=== PATIENT | female | born 1935 | race Caucasian/White ===

== ENCOUNTER 2020-08-25 09:05 | Day surgery (SDC) | payer MEDICARE, BC ==
[~2020-08-25] VITALS: Ht 162.6 cm; Wt 60.0 kg
[~2020-08-25 09:05] MED LIST: ASPIR-LOW81 MG PO; CALCIUM600 MG PO; CENTRUM SILVER1 EAC3 PO; DILTIAZEM HCL120 MG PO; FOSAMAX70 MG PO; OMEGA 3 1,0001 EACH PO; SIMVASTATIN20 MG PO; VITAMIN C1000 MG PO; VITAMIN D32000 UNI1 PO
--- NOTE | 2020-08-25 12:56 | NUR ---
08/25/20 1256 Irina Lpoez 1232 PT ARRIVED IN PACU SLEEPY LAYING SEMI ENGEL. SHARMA CATHETER CLAMPED AND TAPED TO ABD FROM OR. 1240 PT REPOSITIONED SELF TO L SIDE PER DR ORDERS. NO C/O'S. 1250 OXYGEN REMOVED. SATS 98-100% ON RA.
--- NOTE | 2020-08-25 13:18 | NUR ---
PT ARRIVES TO DS RM 5 FROM PACU ON RIGHT SIDE. PT DENIES ANY PAIN OR NAUSEA, STATES "HAVING TO PEE." PLAN FOR PT TO REPOSITION PRONE AT 1320. PT SPOUSE IN AT TIME OF ARRIVAL, STEPS OUT. CALL LIGHT WITHIN REACH.
--- NOTE | 2020-08-25 14:08 | NUR ---
LE 1340: CATHETER DRAINED FOR 75ML MITOMYCIN DRAINED AND DISPOSED OF APPROPRIATE. CATH REMOVED AND PT UP TO BR WITH STANDBY ASSIST FROM THIS RN REQUESTED. SUCCESSFUL FIRST POST OP VOID OF 300ML. PT BACK TO STRETCHER. DANAY WELL, DENIES DIZZINESS AND SOB. BP ELEVATED. PT TOLERATES PO INTAKE. AT THE BEDSIDE AND ATTENTIVE. NO NEEDS VOICED AT THIS TIME
--- NOTE | 2020-08-25 15:31 | NUR ---
UP TO BATHROOM STEADY ON FEET, VOIDED 300 ML. REPORTS FEELING PRESSURE IN BLADDER. BACK TO ROOM, ADMINISTERED HYDRALIZINE IV PER MAR, PATIENT TOLERATED IV MEDICAITON WELL, VSS IMPROVED. PROVIDED APPLE JUICE AND WARMING MEASURES. NO OTHER NEEDS AT THIS TIME.
[2020-08-25] MEDS ORDERED: CIPRO500 MG PO (15:56)
[2020-08-25] MEDS ORDERED: OXYCODONE HCL5 MG PO (15:57)
[2020-08-25] MEDS ORDERED: PYRIDIUM200 MG PO (15:57)
--- NOTE | 2020-08-25 16:03 | NUR ---
PATIENT CALLED STATING" I THINK I AM GONNA THROW UP MY STOMACH HURTS SO BAD". DISCUSSED PAIN MEDICAITON PER MAR. PATIENT REFUSED WITH CONCERNS OF CONSTIPATION, PATIENT'S REASSURED PATIENT THAT PAIN MEDICAITON IS NEEDED NOW, AND WILL USE LAXATIVES AT HOME. PATIENT THEN AGREED TO PAIN MEDICAITON.
--- NOTE | 2020-08-25 16:09 | NUR ---
PT AMBULATES TO BR INDEPENDENTLY. DANAY WELL. CALL LIGHT WITHIN REACH
--- NOTE | 2020-08-25 16:44 | NUR ---
LE 1425: PT REQUESTING D/C. MEETS CRITERIA AND STATES INCREASED COMFORT AFTER PAIN RX ADMIN. D/C INSTRUCTIONS PROVIDED AND DISCUSSED ORDERED. PT VERBALIZES UNDERSTANDING. WHEELED OFF OF UNIT BY THIS RN. TRANSFERS INTO VEHICLE INDEPENDENTLY. RESP EVEN AND UNLABORED. NO PHYSICAL S/S OF DISTRESS AT THIS TIME
--- NOTE | 2020-08-29 13:29 | PATH ---
[facility] [address] [place], [place] [address] Signed SPECIMEN(S): A URINARY BLADDER CHIPS SPECIMEN SOURCE: A. URINARY BLADDER CHIPS CLINICAL HISTORY: Papillary bladder mass. 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 COMMENT: The lesion demonstrates both exophytic and endophytic (inverted) architecture. This case has been reviewed by Adrienne Conroy M.D. NAL:YULIYA:cml:C1NR MICROSCOPIC EXAMINATION: Histologic sections of all submitted blocks are examined by light microscopy. These findings, together with the gross examination, support the pathologic diagnosis. GROSS DESCRIPTION: The specimen, labeled "DC, urinary bladder chips," is received in formalin and consists of pink-worley, rubbery and soft tissue fragments that aggregate measure 2.0 x 1 3 x 0.3 cm. Specimen is entirely submitted in cassette (A1). JS (under the direct supervision of a pathologist) The Gross Description was prepared using a voice recognition system. The report was reviewed for accuracy; however, sound-alike word errors, addition and/or deletions may occur. If there is any question about this report, please contact Client Services. PERFORMING LABORATORY: The technical component was performed by [facility], [address] [place] [id number] ([employer]: Yuliya Cruz MD; CLIA# [id number]). [facility], [address] [address] (CLIA# [id number]). Diagnostician: Brynn Campbell MD PATIENT NAME: AIDE CHARLES SHONNA PATHOLOGY DATE OF : 35 REPORT #: [id number] PHYSICIAN: DARIUSZ PATHOLOGY PCP: CARTER PEDRAZA DO REPORT IS CONFIDENTIAL AND NOT TO BE RELEASED WITHOUT AUTHORIZATION [address] [address] Signed Pathologist Electronically Signed 08/29/2020 Copies: ~ PATIENT NAME: AIDE CHARLES SHONNA PATHOLOGY DATE OF : 35 REPORT #: [id number] PHYSICIAN: [facility] PATH[facility] PCP: CARTER PEDRAZA DO REPORT IS CONFIDENTIAL AND NOT TO BE RELEASED WITHOUT AUTHORIZATION
--- NOTE | 2020-09-01 10:48 | OR ---
[facility] [address] [place], [place] [address] Signed DATE OF OPERATION: 08/25/2020 SURGEON: Donte Acosta MD PREOPERATIVE DIAGNOSIS: 1.5 cm pedunculated bladder mass, located on top of left ureteral orifice. POSTOPERATIVE DIAGNOSIS: 1.5 cm pedunculated bladder mass, located on top of left ureteral orifice. NAMES OF PROCEDURES: 1. Diagnostic cystoscopy with left retrograde pyelogram. 2. Transurethral resection of bladder tumor -- small. 3. Insertion of 6 x 24 cm double-J ureteral stent into the left collecting system. 4. Intravesical instillation of mitomycin chemotherapy. ANESTHESIA: General. ESTIMATED BLOOD LOSS: Minimal. COMPLICATIONS: None. SPECIMENS: Fragments of papillary bladder tumor sent to pathology for evaluation. DRAINS: A 20-[place]er 2-way Jaimes catheter, capped and secured to the patient's abdomen. INDICATIONS FOR PROCEDURE: Ms. Charles is a very pleasant 85-year-old healthy female, who recently presented to me upon referral from Dr. James Pedraza for evaluation of a bladder filling defect incidentally noted on a CT scan performed earlier this year. The patient denied any gross hematuria or any other urinary symptoms. She does have a remote history of mild tobacco use. She recently underwent diagnostic cystoscopy, which revealed presence of a 1 to 1.5 cm pedunculated and papillary bladder mass located directly on top of the left ureteral orifice. No other masses were noted at that time. She presents today to undergo definitive management of her bladder mass. Electronically Signed By: DONTE ACOSTA MD 09/01/20 1048 PATIENT NAME: AIDE CHARLES OPERATIVE REPORT DATE OF : 35 REPORT #: [id number] PHYSICIAN: DONTE ACOSTA MD PCP: JAMES PEDRAZA DO REPORT IS CONFIDENTIAL AND NOT TO BE RELEASED WITHOUT AUTHORIZATION [facility] [address] [place], [place] [address] Signed OPERATIVE FINDINGS: 1. On cystoscopy, there is a 1.5 cm papillary mass noted directly on top of the left ureteral orifice as described above. This mass appears mostly pedunculated. However, there appears to be some minor changes to the bladder wall just superior to the rim of the left ureteral orifice. This mass is resected endoscopically in toto including the entire 2 cm distal portion of the left ureter. The fragments of the resection were sent to pathology for evaluation. 2. There was good efflux noted from the left ureteral orifice after resection. An initial left retrograde pyelogram was performed prior to resection, which revealed no evidence of any filling defects within the entire length of the left ureter. Left retrograde pyelogram also revealed some mild dilation of the left renal pelvis. However, there was no overt calyceal blunting or filling defect within the left renal pelvis. 3. A repeat left retrograde pyelogram was performed, which again revealed a left ureter without any filling defects. Left semi-rigid ureteroscopy was performed in order to guide the Sensor wire into the left collecting system prior to stent placement. 4. A 6 x 24 cm double-J ureteral stent was inserted into the patient's left collecting system under fluoroscopic guidance without difficulty. 5. At the end the procedure, 40 mg of mitomycin in 20 mL of sterile water was infused into the patient's bladder via a 20-[place] Jaimes catheter. The catheter was then secured to the patient's abdomen. DESCRIPTION OF PROCEDURE: After informed consent was obtained, the patient was taken back to the operating room. She was transferred from the rmadison to the operating room table, where general anesthesia was induced. She was placed in the dorsal lithotomy position and her genitalia were prepped and draped in a standard sterile fashion. Using a 30-degree lens on a 22.5-[place]er introducer, rigid cystoscope was inserted through the urethra and into her bladder under direct visualization. Panendoscopic views of the bladder were then obtained. Please see above findings. Attention was turned to the left ureteral orifice. A cone-tipped catheter was used to perform a left retrograde pyelogram. Please see above findings. I then removed the cystoscope and replaced it with a 26-[place]er sheath using a visual obturator. The visual obturator was then switched out for a resectoscope with a 24-[place]er loop. The 1.5 cm bladder mass located on top of the left ureteral orifice was then resected under direct vision. The mass process was resected as well as 2 to 3 cm of the distal left ureter and ureteral orifice. The resection was performed down to the level of the detrusor muscle. No iatrogenic perforation occurred during resection. I could easily see the distal portion of the ureter even after resection as it was noted to be effluxing normally. I cauterized the entire resection bed, excluding the left ureteral orifice itself. Cautery was also performed with a 24-[place] bipolar loop. Once I was satisfied that all of the tumor Electronically Signed By: DONTE ACOSTA MD 09/01/20 1048 PATIENT NAME: AIDE CHARLES SHONNA OPERATIVE REPORT DATE OF : 35 REPORT #: [id number] PHYSICIAN: DONTE ACOSTA MD PCP: JAMES PEDRAZA DO REPORT IS CONFIDENTIAL AND NOT TO BE RELEASED WITHOUT AUTHORIZATION [address] [place], [place] [address] Signed fragments had been collected via bladder irrigation using a Michael syringe, I removed the resectoscope and reinserted a diagnostic cystoscope using a 22.5-[place]er introducer. A repeat left retrograde pyelogram was then performed using a cone-tipped catheter. Please see above findings. I removed the cystoscope and then inserted a short semi-rigid ureteroscope. This was easily passed into the left distal ureter and a repeat left retrograde pyelogram was performed. I removed the cone-tipped catheter and then passed a Sensor wire through the ureteroscope and into the left collecting system. Adequate placement of the wire was confirmed on fluoroscopy. The semi-rigid ureteroscope was then removed, leaving the wire behind. Over the wire, I passed a 6 x 24 cm double-J ureteral stent into the patient's left collecting system. When the Sensor wire was pulled, an adequate proximal coil was seen within the left renal pelvis. An adequate distal coil was seen on cystoscopy. The patient's bladder was then drained completely. A 20-[place] 2-way Jaimes catheter was inserted into the patient's bladder without difficulty. This catheter was manually irrigated with sterile water. I then instilled the 40 mg of mitomycin in 20 mL of sterile water into the patient's bladder via the Jaimes catheter. Once the mitomycin was instilled, the catheter was capped and then secured to the patient's abdomen. A belladonna and opioid suppository were then inserted per rectum. The procedure was then terminated. The patient tolerated the procedure well without any complication. She will now be transferred to the Postanesthesia Care Unit in stable condition. DISPOSITION: I discussed the details of today's procedure with the patient's and answered all of his questions. She will be sent home today with Cipro 500 mg p.o. b.i.d. for a total of 7 days, along with oxycodone 5 mg 1 tablet p.o. q.8 hours p.r.n. pain. She was also given Pyridium as needed for dysuria. Her indwelling ureteral stent will remain in the collecting system to allow proper healing of the left ureteral orifice. She has been scheduled to return to clinic on September 11 to undergo cystoscopy with left ureteral stent extraction. I told Dr. Charles today that I would contact him with the results of her pathology as soon as they were available to me. MD IVANA Bravo/TANOL /[id number] Electronically Signed By: DONTE ACOSTA MD 09/01/20 1048 PATIENT NAME: AIDE CHARLES SHONNA OPERATIVE REPORT DATE OF : 35 REPORT #: [id number] PHYSICIAN: DONTE ACOSTA MD PCP: JAMES PEDRAZA DO REPORT IS CONFIDENTIAL AND NOT TO BE RELEASED WITHOUT AUTHORIZATION [facility] [address] [place] [id number] Signed Copies: ~ Electronically Signed By: DONTE ACOSTA MD 09/01/20 1048 PATIENT NAME: AIDE CHARLES SHONNA OPERATIVE REPORT DATE OF : 35 REPORT #: [id number] PHYSICIAN: DONTE ACOSTA MD PCP: JAMES PEDRAZA DO REPORT IS CONFIDENTIAL AND NOT TO BE RELEASED WITHOUT AUTHORIZATION
== END 2020-08-25 16:30 | disposition home or self-care (01) ==
LOC: DS 09:05
PROVIDERS: ATTEND Urology
PROC: 0TBB8ZX Excision of Bladder, Via Natural or Artificial Opening Endoscopic, Diagnostic (ICD-10-PCS; principal; 2020-08-25 10:30)
PROC: 0T778DZ Dilation of Left Ureter with Intraluminal Device, Via Natural or Artificial Opening Endoscopic (ICD-10-PCS; 2020-08-25 10:30)
PROC: 3E0K705 Introduction of Other Antineoplastic into Genitourinary Tract, Via Natural or Artificial Opening (ICD-10-PCS; 2020-08-25 10:30)
DX: N32.89 Other specified disorders of bladder (principal); I10 Essential (primary) hypertension; E21.3 Hyperparathyroidism, unspecified; E78.5 Hyperlipidemia, unspecified; Z98.890 Other specified postprocedural states
CPT/HCPCS: 00912; 74420; 88307; C2617; J0360; J0690; J1100; J2405; J2704; J3010; J7121; J9280; Q9967

== ENCOUNTER 2021-03-16 09:35 | Day surgery (SDC) | payer MEDICARE, BC ==
[~2021-03-16] VITALS: Ht 162.6 cm; Wt 60.9 kg
[~2021-03-16 09:35] MED LIST changes: +CIPRO500 MG PO; +FISH OIL 1,0001 EAC3 PO; +LIPITOR40 MG PO; +OXYCODONE HCL5 MG PO; +PYRIDIUM200 MG PO
--- NOTE | 2021-03-16 15:08 | NUR ---
03/16/21 1508 Regina Johnson 1503- PT ARRIVES TO PACU NONAROUSABLE TO NOXIOUS STIMULI WITH AN OPA IN PLACE. PT ALSO NEEDING A JAW LIFT TO MAINTAIN A PATENT AIRWAY. RESP EVEN AND UNLABORED. OXYGEN SAT HIGH 90'S TO 100% ON 10L VIA MASK. 1507- OXYGEN TITRATED DOWN TO 6L VIA MASK.
--- NOTE | 2021-03-16 15:45 | NUR ---
PATIENT ARRIVES BACK TO ROOM FROM PACU. RECEIVED REPORT FROM NICA LUNDBERG. PATIENT RESTING COMFORTABLY IN BED. AT BEDSIDE. VSS. PATIENT DENIES PAIN OR NAUSEA. SHE IS NOT HAVING ANY SPOTTING. STATES SHE FEELS SHE HAS TO URINATE WITH SHARMA IN PLACE. PROVIDED PATIENT WITH WATER AND APPLESAUCE. CALL LIGHT WITHIN REACH.
--- NOTE | 2021-03-16 16:27 | NUR ---
PHONE CALL TO DR ACOSTA. PATIENT HAS SENSATION TO USE URINATE WITH SHARMA IN PLACE. ORDER GIVEN FOR ANOTHER B&O OR OXYBUUTYNIN 5 MG TAB NOW. TALKED TO PATIENT AND AND THEY DECLINED INTERVENTION AT THIS TIME STATING NOT THAT BAD.
--- NOTE | 2021-03-16 16:45 | NUR ---
PATIENT RESTING COMFORTABLY IN BED. HUSBAN AT BEDSIDE. DENIES PAIN AND NAUSEA. VSS. DRINKING WATER. NO BLEEDING. SHARMA CATHERTER DRAINING WELL. CALL LIGHT WITHIN REACH.
--- NOTE | 2021-03-16 17:10 | NUR ---
PROVIDED PATIENT WITH DISCHARGE INSTRUCTIONS. PATIENT VERBALIZED UNDERSTANDING AND ALL QUESTIONS ANSWERED. EMPTIED SHARMA CATH. PATIENT DENIES PAIN. NO BLEEDING. PROVIDED PATIENT WITH WHEELCHAIR RIDE TO FRONT OF HOSPITAL WHERE WAS WAITING WITH CAR.
--- NOTE | 2021-03-18 08:55 | OR ---
[facility] [address] [facility] [place], [place] [address] Signed DATE OF OPERATION: 03/16/2021 SURGEON: Donte Acosta MD PREOPERATIVE DIAGNOSES: 1. History of bladder mass, status post resection of left ureteral orifice. 2. A 5 mm distal left ureteral calculus per recent CT scan. POSTOPERATIVE DIAGNOSES: 1. History of bladder mass, status post resection of left ureteral orifice. 2. A 5 mm distal left ureteral calculus per recent CT scan. 3. 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 NAMES OF PROCEDURES: 1. Diagnostic cystoscopy. 2. Attempted left retrograde pyelogram. 3. Attempted recanalization of the left ureteral orifice. 4. Transurethral resection of left ureteral orifice (TURBT-small) .. 5. Placement of 20-Libyan two-way Jaimes catheter. ANESTHESIA: General. ESTIMATED BLOOD LOSS: Minimal. COMPLICATIONS: None. SPECIMENS: Area of previous left ureteral orifice with associated calcifications resected in toto and placed in a specimen cup to be sent to pathology for evaluation. DRAINS: A 20-Libyan two-way Jaimes catheter, connected to gravity drainage. INDICATIONS FOR PROCEDURE: Mrs. Charles is a very pleasant 85-year-old female who earlier this year underwent transurethral resection of a mass growing directly on top of her left ureteral orifice. Pathology at that time revealed PUNLMP. Not long after surgery, the patient did begin Electronically Signed By: DONTE ACOSTA MD 03/18/21 0855 PATIENT NAME: AIDE CHARLES [facility] OPERATIVE REPORT DATE OF : 35 REPORT #: [id number] PHYSICIAN: DONTE ACOSTA MD PCP: CARTER PEDRAZA DO REPORT IS CONFIDENTIAL AND NOT TO BE RELEASED WITHOUT AUTHORIZATION [facility] [address] [place], [place] [address] Signed to experience intermittent bouts of left-sided flank pain. She ultimately underwent a renal bladder ultrasound which did reveal dilation of the left kidney. This was followed by a CT IVP in late January, which revealed moderate left hydronephrosis down to the level of the distal left ureter where there appear to be a 5 mm distal left ureteral calculus. After discussion of the risks and benefits of the procedure, the patient has consented to undergo left ureteroscopy with laser lithotripsy and basket extraction of her obstructing 5 mm distal left ureteral calculus. She presents today to undergo the aforementioned procedure. OPERATIVE FINDINGS: 1. On cystoscopy, there was no evidence of any suspicious masses or lesions, however, there are a small amount of calcifications associated with the left ureteral orifice status post resection. I attempted to perform a left retrograde pyelogram, however, this was unsuccessful, so I attempted to cannulate the left ureteral orifice using a semi-rigid ureteroscope. This was also unsuccessful. Because the patient's previously resected left ureteral orifice appeared mildly aberrant in appearance and I was unable to cannulate the left ureteral orifice, the decision was made to attempt repeat transurethral resection of the left ureteral orifice. The left ureteral orifice was resected transurethrally, however I was unable to visualize the ureteral orifice, even after resection of the inflamed tissue. 2. The patient was given IV fluorescein to assist in evaluating for efflux from the left ureteral orifice. However, this was unsuccessful. I resected a little bit more in the area where I believe the left ureteral orifice would be, however, once more than adequate section was performed, I chose to defer any additional resection for fear of potentially perforating the patient's bladder. 3. A 20-Libyan two-way Jaimes catheter was inserted into the patient's bladder and connected to gravity drainage. DESCRIPTION OF PROCEDURE: After informed consent was obtained, the patient was taken to the operating room. [facility], where general anesthesia was induced. She was placed in the dorsal lithotomy position and her genitalia were prepped and draped in a standard sterile fashion. Using a 30-degree lens on a 22.5-Libyan introducer, a rigid cystoscope was inserted through urethra and into her bladder under direct visualization. Panendoscopic views of the bladder were then obtained. I then turned my attention to the left ureteral orifice. Please see above findings. I 1st attempted left retrograde pyelogram with a cone-tipped catheter, however, this was unsuccessful. I decided to use an alligator grasper to pull some of the calcifications from the opening of the left ureteral orifice to hopefully get a better view of the opening to the ureteral orifice. I then advanced a semi-rigid ureteroscope and attempted to cannulate the left ureteral orifice with a semi-rigid Electronically Signed By: DONTE ACOSTA MD 03/18/21 0855 PATIENT NAME: AIDE CHARLES [facility] OPERATIVE REPORT DATE OF : 35 REPORT #: [id number] PHYSICIAN: DONTE ACOSTA MD PCP: CARTER PEDRAZA DO REPORT IS CONFIDENTIAL AND NOT TO BE RELEASED WITHOUT AUTHORIZATION [address] [address] Signed ureteroscope. This was unsuccessful as I was never able to find the opening to the left ureteral orifice. It was at this time that I made decision to transurethrally resect the distal and of the left ureter in hopes to regain access to the left ureteral orifice. Therefore, a resectoscope with a 24-Libyan bipolar loop was then gently used to resect the distal ureteral orifice. I made a few small resections in the area where I believe the left ureteral orifice was anticipated to be based on the general appearance of the area. I resected and obtained a few moderately deep slices of urothelium in the area. I made it down to the level of the perivesical fat in a couple of small areas, however, I was not concerned for perforation at that time. Once I resected as much as I could comfortably and I was unable to see the ureter, I asked anesthesia to administer IV fluorescein in an effort to visualize the left ureteral orifice. Fluorescein was administered and after 30 minutes, there was no evidence of any efflux from the left ureter. At this time, I was uncomfortable performing any additional resection of this area for fear of potentially perforating the patient's bladder, so this portion of the procedure was then aborted. I was careful not to cauterize anything in this area for fear of sealing the ureteral orifice. There was no significant oozing from this area, so there was no significant cautery required for hemostasis. The patient's bladder was irrigated of the resected area of the left ureteral orifice. This will be sent to pathology for evaluation. Once I was satisfied that the patient's bladder was free of any additional specimens, I removed the cystoscope and inserted a 20-Libyan two-way Jaimes catheter into the patient's bladder. The Jaimes balloon was filled with 30 mL of sterile water. This catheter was then connected to gravity drainage and the procedure was terminated. The patient tolerated the procedure well without any complication. She will now be transferred to the postanesthesia care unit in stable condition. DISPOSITION: I discussed the details of today's procedure with the patient's , Dr. Charles and answered all of his questions. I told him that the patient will likely require an Interventional Radiology referral to be evaluated for percutaneous antegrade placement of a nephrostomy tube, followed by an internal double-J stent. The patient's initially voiced interest to being referred to [facility]. However now he is considering being referred to [facility] since he has family connections there. He has agreed to give me the name of the interventional radiologist at [facility] tomorrow so that can contact that particular interventional radiologist and place a formal referral. The patient will be sent home today with Cipro 500 mg p.o. b.i.d. for a total of 7 days along with B and O suppositories as needed for bladder spasms. The patient will be scheduled to return to clinic in approximately 2 months for postoperative evaluation and in the interim, may call the office as needed. However, I will be out of the clinic for approximately seven weeks. Electronically Signed By: DONTE ACOSTA MD 03/18/21 0855 PATIENT NAME: AIDE CHARELS [facility] OPERATIVE REPORT DATE OF : 35 REPORT #: [id number] PHYSICIAN: DONTE ACOSTA MD PCP: CARTER PEDRAZA DO REPORT IS CONFIDENTIAL AND NOT TO BE RELEASED WITHOUT AUTHORIZATION [address] [address] Signed Donte Acosta MD AR/MODL /[id number] Copies: ~ Electronically Signed By: DONTE ACOSTA MD 03/18/21 0855 PATIENT NAME: AIDE CHARLES SHONNA OPERATIVE REPORT DATE OF : 35 REPORT #: [id number] PHYSICIAN: DONTE ACOSTA MD PCP: CARTER PEDRAZA DO REPORT IS CONFIDENTIAL AND NOT TO BE RELEASED WITHOUT AUTHORIZATION
--- NOTE | 2021-03-20 08:41 | PATH ---
[facility] [address], [place] [address] Signed SPECIMEN(S): A LEFT URETERAL ORIFICE SPECIMEN SOURCE: A. LEFT URETERAL ORIFICE CLINICAL HISTORY: History of bladder tumor resection FINAL PATHOLOGIC DIAGNOSIS: Bladder, left ureteral orifice, biopsy: - Benign urothelial tissue with dystrophic calcification and foreign body giant cell reaction. BRP:michael:[id number] MICROSCOPIC EXAMINATION: Histologic sections of all submitted blocks are examined by light microscopy. These findings, together with the gross examination, support the pathologic diagnosis. GROSS DESCRIPTION: The specimen, labeled "DC, left ureteral orifice," is received in formalin and consists of several pieces of irregular shaped pink-worley, rubbery and friable tissue fragments that aggregate measure 2.3 x 1.4 x 0.3 cm. Specimen is entirely submitted in cassette (A1). JS (under the direct supervision of a pathologist) The Gross Description was prepared using a voice recognition system. The report was reviewed for accuracy; however, sound-alike word errors, addition and/or deletions may occur. If there is any question about this report, please contact Client Services. PERFORMING LABORATORY: The technical component was performed by [facility], [address] [place] [id number] (Filling And Stapling Machine Operator: Yuliya Cruz MD; CLIA# [id number]). The professional interpretation was performed by [facility], [facility], [address] [place] [address]. Diagnostician: Papa Mcbride MD Pathologist Electronically Signed 03/17/2021 PATIENT NAME: AIDE CHARLES SHONNA PATHOLOGY DATE OF : 35 REPORT #: [id number] PHYSICIAN: DARIUSZ PATHOLOGY PCP: CARTER PEDRAZA DO REPORT IS CONFIDENTIAL AND NOT TO BE RELEASED WITHOUT AUTHORIZATION [address] [address] Signed Copies: ~ PATIENT NAME: AIDE CHARLES SHONNA PATHOLOGY DATE OF : 35 REPORT #: [id number] PHYSICIAN: DARIUSZ PATHOLOGY PCP: CARTER PEDRAZA DO REPORT IS CONFIDENTIAL AND NOT TO BE RELEASED WITHOUT AUTHORIZATION
== END 2021-03-16 17:00 | disposition home or self-care (01) ==
LOC: OPS 09:35 → DS 09:35 → OPS 10:55
PROVIDERS: ATTEND Urology
PROC: 0TBB8ZZ Excision of Bladder, Via Natural or Artificial Opening Endoscopic (ICD-10-PCS; principal; 2021-03-16 12:00)
DX: N32.9 Bladder disorder, unspecified (principal); N20.1 Calculus of ureter; E78.5 Hyperlipidemia, unspecified; I10 Essential (primary) hypertension; Z90.710 Acquired absence of both cervix and uterus; Z87.891 Personal history of nicotine dependence
CPT/HCPCS: 00912; 76000; 88305; C1769; J0690; J1100; J2405; J2704; J3010; J7121

== ENCOUNTER 2025-03-12 09:58 | Observation (INO) | payer MEDICARE, BC ==
[2025-03-05 17:30] VITALS: BP 158/61
[~2025-03-12] VITALS: Ht 162.6 cm; Wt 60.5 kg
[2025-03-12] VITALS (7 sets, daily range): BP systolic 148–156; BP diastolic 45–59
[~2025-03-12 09:58] MED LIST changes: +IBLOOD GLUCOSE TEST STRIP 1 EA TEST VI PRN; +LACTATED RINGER'S 1,000 ML IV SCH; +LIDOCAINE HCL 1% 5 ML SDV INJ ONE
[2025-03-12] MEDS ORDERED: LIDOCAINE HCL 2% 5 ML SDV ONE (13:00)
[2025-03-12] MEDS ORDERED: fentaNYL citrate 100 MCG/2 ML VIAL ONE ×2 (13:00→14:01)
[2025-03-12] MEDS ORDERED: ROCURONIUM BROMIDE 50 MG/5 ML SYR ONE (13:05)
[2025-03-12] MEDS ORDERED: CEFAZOLIN SODIUM 2 GM/20 ML SYR IV SCH (13:12)
[2025-03-12] MEDS ORDERED: DEXAMETHASONE SOD PHOS 4 MG/ML VIAL ONE (13:44)
[2025-03-12] MEDS ORDERED: HYDROmorphone HCL 1 MG/ML SYR IV PRN (14:15)
[2025-03-12] MEDS ORDERED: fentaNYL citrate 50 MCG/ML SDV IV PRN (14:15)
[2025-03-12] MEDS ORDERED: IBLOOD GLUCOSE TEST STRIP 1 EA TEST VI PRN (14:15)
[2025-03-12] MEDS ORDERED: METOCLOPRAMIDE HCL 10 MG/2 ML SDV IV PRN (14:15)
[2025-03-12] MEDS ORDERED: NALOXONE HCL 0.4 MG SYR IV PRN (14:15)
[2025-03-12] MEDS ORDERED: SUGAMMADEX SODIUM 200 MG/2 ML ML ONE (14:30)
--- NOTE | 2025-03-12 15:02 | NUR ---
03/12/25 1502 Ashley Catherine PATIENT REPORTS NEEDING TO SPIT ON ARRIVAL TO PACU. SUCTION IS PROVIDED AND PATIENT FOLLOWS INSTRUTIONS TO SPIT INTO THE SUCTION TUBING.
[2025-03-12] MEDS ORDERED: LACTATED RINGER'S 1,000 ML IV SCH (15:15)
[2025-03-12] MEDS ORDERED: PROCHLORPERAZINE EDISYLATE 10 MG/2 ML VIAL IV PRN (15:15)
[2025-03-12] MEDS ORDERED: OXYCODONE HCL 5 MG TAB PO PRN (15:30)
[2025-03-12] MEDS ORDERED: SEVOFLURANE 250 ML BTL INH ONE (15:58)
--- NOTE | 2025-03-12 16:28 | NUR ---
PT ALERT FROM O/R DENIES DISCOMFORTS FAMILY PRESENT X2. PT HAS CONTINUED TO REST QUIETLY WATCHING TV SIPPING H20. PT AGREES TO OXY 5 MG CRUSHED IN APPLESAUCE TO PREVENT PAIN POST OPERATIVELY. ORIENTED TO CALL LIGHT AND BED CONTROLS. BED IS ELEVATES PER INSTRUCTIONS, TRACH KIT IN THE HOLMAN NEAR PT ROOM DOOR. PT DENIES FURTHER NEEDS. VERBALIZES UNDERSTANDING THAT SHE IS TO NOTIFY STAFF OF ANY NUMBNESS, TINGLING, SOB, THROAT SWELLING, OR ANY OTHER CONCERNS. PT SITS ON EDGE OF BED THEN SBA TO BSC TO VOID. RETURNS TO RESTING IN BED.
--- NOTE | 2025-03-12 17:15 | NUR ---
PT RESTING IN BED EYES CLOSED. DEMONSTRATED HOW TO CALL FOR ASSIST AFTER LAST SET OF VITALS BEFORE THIS INSTRUMENTATION SPECIALIST LEFT THE ROOM. DRESSING CDI NO SWELLING AT INCISION SITE. PT HAS BEEN SIPPING ICE WATER SINCE COMING TO THE FLOOR
--- NOTE | 2025-03-12 17:44 | NUR ---
PT CONTINUES TO REST QUIETLY AGREES SHE IS COMFORTABLE. CONTINUES TO SIP H20 AND CLEAR ENSURE DENIES WANT OF OTHER ITEMS. DRESSING CDI NO SWELLING AT INCISION SITE
--- NOTE | 2025-03-12 19:00 | NUR ---
shift report received from dayshift sumanth ball at bedside. pt awake and visiting with family in room. pt on ra, rr even and unlabored. cpox at bedside. hob elevated per md orders. swallowing intact, x2 scant red shadowing noted, no change since arrival to ms floor per shift report. iv site wnl, fluids infusing wnl. pt denies needs or concerns, call light in reach. trach tray on table in hallway next to pt room.
--- NOTE | 2025-03-12 19:50 | NUR ---
ROUNDED ON pt, pt RESTING IN BED. NO NEW SHADOWING NOTED TO DRESSING. pt DENIES NUMBNESS AND TINGLING, DIFFICULTY SWALLOWING. HOB REMAINS ELEVATED, CALL LIGHT IN REACH.
--- NOTE | 2025-03-12 20:20 | NUR ---
ASSESSMENT COMPLETE, NO SCHEDULED MEDS. IV SITE WNL, BRISK BLOOD RETURN NOTED. IV FLUIDS INFUSING DIRECTED. pt A/O, RATES PAIN TOLERABLE 3/10, SCHEDULED TYLENOL ON EMAR. pt DENIES NUMBNESS AND TINGLING, NO ISSUES SWALLLOWING NOTED. NO NEW SHADOWING NOTED, DR CONTEH IN ROOM AND ROUNDED ON pt. SCD'S IN PLACE. NO FURTHER NEEDS, CALL LIGHT IN REACH.
[2025-03-12] MEDS ORDERED: ACETAMINOPHEN 500 MG TAB PO SCH (22:00)
--- NOTE | 2025-03-12 22:30 | NUR ---
SCHEDULED TYLENOL GIVEN FOR REPORTED 3/10 PAIN IN NECK AREA. NO NEW SHADOWING NOTED, MED CRUSHED IN APPLESAUCE. pt THEN UP SBA TO BATHROOM AND VOIDED 700MLS AND BACK IN BED. CPOX IN PLACE, pt ON RA. SCD'S ALSO ON. NO FURTHER NEEDS OR CONCERNS, CALL LIGHT IN REACH. HOB ELEVATED AND BED ALARM ON FOR SAFETY.
--- NOTE | 2025-03-12 23:40 | NUR ---
rounded on pt, pt resting quietly in bed. cpox at bedside, spo2 low 90's on ra. hr wnl. bed alarm on and call light in reach.
[2025-03-13] VITALS (7 sets, daily range): BP systolic 148–157; BP diastolic 43–57
--- NOTE | 2025-03-13 01:45 | NUR ---
rounded on pt, pt resting in bed with eyes closed. on ra, rr even and unlabored. call light in reach.
--- NOTE | 2025-03-13 02:11 | NUR ---
assessment complete, no acute changes. pt is somewhat steady when ambulating, supervising deputy provided pt with walker. bed alarm remains on for safety. no new shadowing noted to dressing, pt continues to deny numbness or tingling and denies difficulty swallowing. iv site wnl, fluids infusing as directed. scd's remain on.
--- NOTE | 2025-03-13 03:40 | NUR ---
ROUNDED ON pt, pt RESTING IN BED. EYES CLOSED, ON RA. RR EVEN AND UNLABORED. SPO2 AND HR WNL, CPOX AT BEDSIDE. CALL LIGHT IN REACH.
--- NOTE | 2025-03-13 04:35 | NUR ---
pt TOLERATING ORAL INTAKE, PER MD ORDERS: DIET ADVANCED TO REGULAR. pt EDUCATED ON STARTING W/ SOFTER/EASIER TO SWALLOW FOODS. DINING CHAIR SEAT CUSHION TRIMMER UPDATED.
--- NOTE | 2025-03-13 04:45 | NUR ---
ROUNDED ON pt, SPO2 LOW 90'S ON RA, HR 50'S. NO DISTRESS NOTED. pt APPEARS COMFORTABLE AND RELAXED, CALL LIGHT IN REACH. BED ALARM ON FOR SAFETY.
[2025-03-13 05:54] LABS: GLOMERULAR FILTRATION RATE,EST 74.0 mL/min (>60); UREA NITROGEN 19.0 mg/dL (7-18)
--- NOTE | 2025-03-13 05:59 | NUR ---
rounded on pt, left message with kitchen for pt. pt wanting to try softer foods with breakfast. oatmeal and orange juice ordered. pt denies numbness and tingling to face/lips, ect. iv site wnl, fluids infusing as directed. no new shadowing noted to neck dressing. pt denies pain, declines needing scheduled tylenol, med held per pt request. call light in reach.
--- NOTE | 2025-03-13 07:01 | NUR ---
pt had no report of numbness and tingling during the night, md updated on am calium levels and advancement of diet, no new orders received from dr milton.
--- NOTE | 2025-03-13 07:10 | NUR ---
RECIEVED REPORT FROM TOÑO CHAUDHARI. PT RESTING IN BED WITH EYES CLOSED. HOB ELEVATED. TRACH KIT OUTSIDE OF ROOM PER ORDER. CALL LIGHT WITHIN REACH.
--- NOTE | 2025-03-13 08:29 | NUR ---
PT SITTING UP IN BED EATING BREAKFAST, TOLERATING REGULAR DIET TRAY WELL AND W/O PAIN. PT DENIES PAIN, NAUSEA, OR SOB AT THIS TIME. MINIMAL SHADOWING PRESENT ON DRESSING. PT STATES NO CURRENT NEEDS, CALL LIGHT WITHIN REACH.
--- NOTE | 2025-03-13 09:45 | NUR ---
UR CLINICAL REVIEW: 2 MN FOR VERSALUS- PER [facility] MEETS OBS FOR MONITORING S/P PARATHYROID EXCISION. MEDICARE OBS 03/12/25 @ 1518 ORDER MATCHES REG NO AUTH REQUIRED PER MEDICARE GUIDELINES PER MD LIKELY DC HOME TODAY FOLLOWING 24 HR OF AIRWAY MONITORING
--- NOTE | 2025-03-13 10:28 | NUR ---
ALERT AND ORIENTED IN BED. STATES SHE LIVES IN HOUSE WITH STAIRS TO GET INSIDE. DEMOGRAPHICS CONFIRMED. SHE USES NO DME. PATIENT DRIVES AT BASELINE AND HAS NO FINANCIAL CONCERNS. SHE IS ABLE TO AFFORD UTILITIES, FOOD AND MEDS. NO KNOWN CM NEEDS. SHE WILL DC TO HOME WHEN MEDICALLY READY.
--- NOTE | 2025-03-13 10:49 | NUR ---
PT UP TO RESTROOM, BRUSHES TEETH, WASHES FACE, PUTS ON MAKEUP AND USES RESTROOM INDEPENDENTLY. PT BACK TO BED. PT STATES NO FURTHER NEEDS AT THIS TIME, CALL LIGHT WITHIN REACH.
[2025-03-13] MEDS ORDERED: ACETAMINOPHEN500 MG PO (11:21)
--- NOTE | 2025-03-13 11:30 | NUR ---
VISITED DURING SPIRITUAL CARE ROUNDS. PT SUPPORTED BY FAMILY IN ROOM. ALL IN OVERALL GOOD SPIRITS, NO IMMEDIATE NEEDS. LAWNMOWER REPAIR MECHANIC PROVIDED SUPPORTIVE PRESENCE, HOSPITALITY, PRAYER. PT AND FAMILY EXPRESSED GRATITUDE, HOPE.
--- NOTE | 2025-03-13 11:55 | NUR ---
IV DC'D WNL. PT UP TO DRESS SELF IN OWN CLOTHES. FAMILY AT THE BEDSIDE. CALL LIGHT WITHIN REACH.
--- NOTE | 2025-03-13 11:57 | OR ---
[facility] [address] [place], [place] [address] Signed DATE OF OPERATION: 03/12/2025 SURGEON: Remberto Conteh MD PREOPERATIVE DIAGNOSES: Hyperparathyroidism, probable parathyroid adenoma, right lower pole thyroid. POSTOPERATIVE DIAGNOSIS: Parathyroid adenoma, 400 mg, right side ( right lower pole) PROCEDURES: Neck exploration and excision of parathyroid adenoma. ANESTHESIA: General endotracheal, Nawaf Dhaliwal CRNA and Ar Brice CRNA. INDICATION: This 89-year-old white woman is a patient Dr. James Pedraza, was identified more than five years ago was having hypercalcemia following nephrolithiasis issues. She did undergo evaluation, which included a sestamibi scan showing a probable right sided lower pole parathyroid adenoma. She was advised by her academic counselor to avoid exploration possibly related to her advanced age, though she is extremely healthy in every other way. I did offer her exploration several years ago; a SPECT sestamibi scan was performed on March 31, 2021 confirming probable parathyroid adenoma. Over time, she has done reasonably well, but two weeks prior to more recent evaluation had feelings of fatigue and "brain fog." She now revisits the possibility of parathyroid adenoma excision as her low-grade hypercalcemia may contribute to her subjective sense of "brain fog." She did undergo repeat imaging study, which showed a persistent abnormality in the right lower pole of the thyroid suggestive of parathyroid adenoma. She does have concurrent elevated parathormone level and concurrent hypercalcemia in the 10.8 range. she has had hypercalcemia as high as 11.2 based on notes I have reviewed. She is admitted at this time to undergo exploration of the neck and excision of parathyroid adenoma. The patient and her (my former surgical partner of many years ago) understand well the risk of bleeding, infection, recurrent laryngeal nerve injury, failure to identify gland, the unlikely possibility of a double adenoma, and of course other complications related to exploration and wished to proceed. FINDINGS: Electronically Signed By: REMBERTO CONTEH MD 03/13/25 1157 PATIENT NAME: AIDE CHARLES OPERATIVE REPORT DATE OF : 35 REPORT #: [id number] PHYSICIAN: REMBERTO CONTEH MD PCP: JAMES PEDRAZA DO REPORT IS CONFIDENTIAL AND NOT TO BE RELEASED WITHOUT AUTHORIZATION [facility] [address] [place], [place] [address] Signed The thyroid gland was relatively small. She had no excessive obesity. Rotation of the right thyroid gland toward the midline allowed for identification in the tracheoesophageal groove area of a nodule ultimately determined to be a parathyroid adenoma. It had a typical worley appearance and it was excised completely. This may represent a superior gland that had fallen inferiorly based on its anatomic features and origin well cephalad from the lower aspect of the gland. Its vascular pedicle was controlled with small clips and it was excised completely. Frozen pathology confirmed a 400 g lesion consistent with parathyroid adenoma. Exploration of the remaining thyroid was not undertaken. The recurrent laryngeal nerve was identified and completely unharmed. DESCRIPTION OF PROCEDURE: The patient was brought to the operating room, given a general endotracheal anesthetic. Preoperative antibiotic Ancef was given. The neck was carefully placed in the mild extension position with support of the shoulders and arms at the side. A mahesh lounge position was maintained. The neck was prepared with a chlorhexidine solution and draped sterilely. She had several transverse skin lines appropriate for incision. The lowest one was deemed most appropriate. An incision was made between the medial heads of the sternocleidomastoid muscle through the skin in the natural skin line. The dermis was with electrocautery. Subcutaneous tissue and platysmal layer was similarly divided. Superior and inferior flaps were then developed with blunt and electrocautery dissection. Gelpi retractors were placed and midline strap muscles were elevated and revealing the underlying sternothyroid muscle layers. On the right side, this was elevated away from the thyroid gland with sharp dissection and electrocautery. The underlying right thyroid lobe was normal in its appearance, showing no sign of nodularity or other abnormality. The lateral attachments were divided sharply and small lateral veins secured with interrupted 4-0 silk ties and divided. Progressive sharp dissection maintaining a bloodless field was undertaken mobilizing the right lobe toward the midline. Examination inferiorly and posteriorly was undertaken and in due course, an area suggestive of a mobile nodule was identified in the inferior aspect behind the right lobe as predicted by the sestamibi scan. Further dissection showed the recurrent laryngeal nerve to be adjacent to the lesion. The nodule was gently elevated and sharply away from the recurrent laryngeal nerve and other structures. It appeared to be longer than anticipated and may well represent the superior gland in fact. The origin of the parathyroid adenoma being superior was carefully elevated and the vascular pedicle was secured with small clips and divided. The lesion was then passed for frozen pathology. Subsequently described was a 400 mg nodule consistent with parathyroid adenoma. Irrigation was undertaken. Further examination of the recurrent nerve showed it to be unharmed. Though there was no significant bleeding, a small amount of Maximino hemostatic agent was insufflated into the right paratracheal space and plans made for closure. The midline strap muscles were reapproximated with interrupted Electronically Signed By: REMBERTO CONTEH MD 03/13/25 1157 PATIENT NAME: AIDE CHARLES [facility] OPERATIVE REPORT DATE OF : 35 REPORT #: [id number] PHYSICIAN: REMBERTO CONTEH MD PCP: JAMES PEDRAZA DO REPORT IS CONFIDENTIAL AND NOT TO BE RELEASED WITHOUT AUTHORIZATION [address] [address] Signed 3-0 Vicryl suture as was the platysmal layer. The skin was then closed with running subcuticular 4-0 Vicryl. Steri-Strips were applied as was an Acticoat dressing. She was extubated without incident, taken to the recovery room in good condition having suffered no known complications. Sponge, needle, and instrument counts were reported as correct x3. MD MILLICENT San/TANOL /[id number] cc: DO Gail Oliva MD [place], [place] Copies: JAMES PEDRAZA DO ~ Electronically Signed By: REMBERTO CONTEH MD 03/13/25 1157 PATIENT NAME: AIDE CHARLES [facility] OPERATIVE REPORT DATE OF : 35 REPORT #: [id number] PHYSICIAN: REMBERTO CONTEH MD PCP: JAMES PEDRAZA DO REPORT IS CONFIDENTIAL AND NOT TO BE RELEASED WITHOUT AUTHORIZATION
--- NOTE | 2025-03-13 12:25 | NUR ---
PT DRESSED IN OWN CLOTHES, AMBULATES TO WHEELCHAIR INDEPENDENTLY. FAMILY WITH PT. DC PACKET AND EDUCATION COMPLETED, PT AND FAMILY STATE ALL QUESTIONS HAVE BEEN ANSWERED. PT REFUSES PHARMACY EDUCATION D/T "NEW" MEDICATION ORDERED BEING TYLENOL WHICH PT HAS TAKEN PREVIOUSLY. PT WHEELED TO FRONT OF BUILDING BY NURSING PERSONEL.
--- NOTE | 2025-03-14 09:26 | PATH ---
[facility] [address] [place], [place] [address] Signed SPECIMEN(S): A RIGHT INFERIOR PARATHYROID ADENOMA SPECIMEN SOURCE: A. RIGHT INFERIOR PARATHYROID ADENOMA CLINICAL HISTORY: Right primary hyperparathyroidism FROZEN SECTION DIAGNOSIS: A. right inferior parathyroid adenoma: Cellular parathyroid tissue 0.4 g. (Dr. Dejesus, at 1425 on 03/12/2025) Frozen section diagnoses called to Dr. Aguilera at 1442. [facility], [address] [place] [address] (under the direct supervision of a pathologist) The Gross Description was prepared using a voice recognition system. The report was reviewed for accuracy; however, sound-alike word errors, addition and/or deletions may occur. If there is any question about this report, please contact Client Services. Histologic sections of all submitted blocks are examined by light microscopy. These findings, together with the gross examination, support the pathologic diagnosis. FINAL PATHOLOGIC DIAGNOSIS: A. Right inferior parathyroid adenoma, parathyroidectomy: - Hypercellular parathyroid tissue, compatible with adenoma. DDF GROSS DESCRIPTION: The specimen, labeled and designated "Dilshad, right inferior parathyroid adenoma," is received fresh for frozen section and consists of a singular portion of worley soft tissue measuring 1.8 x 1.1 x 0.3 cm. Entirely submitted Cassette Summary: AFS1 - tissue fragment ADDITIONAL NOTES: Immunohistochemical and/or in situ hybridization studies if performed in this case included appropriate positive controls that reacted as expected. This test was developed and its performance characteristics determined by [facility]. It has not been cleared or PATIENT NAME: AIDE CHARLES SHONNA PATHOLOGY DATE OF : 35 REPORT #: [id number] PHYSICIAN: DARIUSZ GRAYSON PCP: CARTER PEDRAZA DO REPORT IS CONFIDENTIAL AND NOT TO BE RELEASED WITHOUT AUTHORIZATION [address], [place] [address] Signed approved by the U.S. Food and Drug Administration. The FDA has determined that such clearance or approval is not necessary. This test is used for clinical purposes. It should not be regarded as investigational or for research. [facility] is certified under the Clinical Laboratory Improvement Amendments of 1988 (CLIA) as qualified to perform high complexity clinical laboratory testing. PERFORMING LABORATORY: Technical component was performed by [facility], [address] [place] [address] (CLIA# [id number]). Professional interpretation was performed by [facility] [address] [place] [id number] Diagnostician: Joseph Love DO Pathologist Electronically Signed 03/14/2025 Copies: ~ PATIENT NAME: AIDE CHARLES SHONNA PATHOLOGY DATE OF : 35 REPORT #: [id number] PHYSICIAN: DARIUSZ GRAYSON PCP: CARTER PEDRAZA DO REPORT IS CONFIDENTIAL AND NOT TO BE RELEASED WITHOUT AUTHORIZATION
== END 2025-03-13 12:25 | disposition home or self-care (01) ==
LOC: DS 09:58 → MS 15:33 → DS 15:33 → MS 03-13 12:25
PROVIDERS: ADMIT Surgery; ATTEND Surgery
PROC: 0GTN0ZZ Resection of Right Inferior Parathyroid Gland, Open Approach (ICD-10-PCS; principal; 2025-03-12 11:45)
DX: D35.1 Benign neoplasm of parathyroid gland (principal); E21.0 Primary hyperparathyroidism; Z87.891 Personal history of nicotine dependence; Z79.899 Other long term (current) drug therapy
CPT/HCPCS: 00320; 36415; 80048; 88305; 88331; 94762; A9270; J0360; J0690; J1100; J2003; J2405; J2704; J3010; J3490; J7121